=== PATIENT | male | born 2000 | race Caucasian/White ===

== ENCOUNTER → 2023-06-03 | Outpatient (REF) | payer OTHER, BC ==
[2023-06-03 13:50] LABS: HIV 1&2 SCREEN NEGATIVE (NEGATIVE)
[2023-06-03 13:58] LABS: HEPATITIS C VIRUS ABY INDEX < 0.02 INDEX (<0.8)
[2023-06-03 13:59] LABS: HEPATITIS B CORE ANTIBODY IGM NEGATIVE (NEGATIVE)
== END ==
LOC: M LAB REF 12:24
PROVIDERS: ATTEND Internal Medicine
DX: Z72.53 High risk bisexual behavior (principal)

== ENCOUNTER → 2024-04-28 | Outpatient (REF) | payer BC | LOC: M LAB REF 16:40 | PROVIDERS: ATTEND Physician Assistant | DX: J02.9 Acute pharyngitis, unspecified (principal) ==

== ENCOUNTER → 2025-04-26 | Outpatient (CLI) | payer BC | LOC: M OUTALCOH 07:40 | PROVIDERS: ATTEND Psychiatry & Neurology Psychiatry | DX: F12.10 Cannabis abuse, uncomplicated (principal); F17.200 Nicotine dependence, unspecified, uncomplicated ==

== ENCOUNTER → 2025-05-26 | Outpatient (RCR) | payer BC | LOC: M OUTALCOH 05-04 15:56 | PROVIDERS: ATTEND Psychiatry & Neurology Psychiatry | DX: F12.10 Cannabis abuse, uncomplicated (principal); F17.200 Nicotine dependence, unspecified, uncomplicated ==